=== PATIENT | female | born 1955 | race Hispanic/Latino ===

== ENCOUNTER 2017-09-03 07:39 | Emergency (ER) | payer OTHER ==
[2017-09-03 07:41] VITALS: BMI 19.1
[2017-09-03 08:07] LABS: BASO # 0.01 K/mm3 (0.0-2.0); BASO % 0.1 % (0.0-3.0); EOS % 0.1 % (1.5-5.0); GRAN # 10.48 (1.4-6.5); GRAN % 85.2 % (50.0-68.0); HEMOGLOBIN 13.9 g/dL (12.0-16.0); LYMPH # 1.3 (1.2-3.4); LYMPH % 10.4 % (22.0-35.0); MEAN CELL VOLUME 92.9 fl (80.0-105.0); MEAN CORPUSCULAR HEMOGLOBIN 31.8 pg (25.0-35.0); MEAN CORPUSCULAR HGB CONC 34.2 g/dl (31.0-37.0); MEAN PLATELET VOLUME 8.2 fl (7.0-11.0); MONO # 0.5 (0.1-0.6); MONO % 4.2 % (1.0-6.0); RBC 4.37 10^6/uL (3.5-6.1); RED CELL DISTRIBUTION WIDTH 13.2 % (11.5-14.5); WHITE BLOOD COUNT 12.3 10^3/ul (4.5-11.0)
[2017-09-03 08:23] LABS: ALB/GLOB RATIO 1.4 (1.1-1.8); ALT/SGPT 31 U/L (7-56); AST/SGOT 26 U/L (14-36); BLOOD UREA NITROGEN 19 mg/dL (7-21); CALCIUM 10.3 mg/dL (8.4-10.5); GFR AFRICAN-AMERICAN > 60; GFR NON-AFRICAN AMERICAN > 60
--- NOTE | 2017-09-03 08:38 | RAD ---
Date of service: 09/03/2017 HISTORY: chest pain COMPARISON: 02/25/2014. FINDINGS: LUNGS: The lungs are well inflated and clear. No pleural effusion or pneumothorax PLEURA: No significant pleural effusion identified, no pneumothorax apparent. CARDIOVASCULAR: Normal. OSSEOUS STRUCTURES: No significant abnormalities. VISUALIZED UPPER ABDOMEN: Normal. OTHER FINDINGS: None. IMPRESSION: No active pulmonary disease.
--- NOTE | 2017-09-03 08:39 | ED PDOC ---
Arrival/HPI - History of Present Illness Time/Duration: 1-3 hours Symptom Onset: Sudden Symptom Course: Resolved Quality: Stabbing Activities at Onset: Light Context: Work <Eunice Guerra - Last Filed: 09/03/17 10:32> <Ugo Dalal DO - Last Filed: 09/03/17 16:43> - General Chief Complaint: Chest Pain Time Seen by Provider: 09/03/17 07:49 - History of Present Illness Narrative History of Present Illness (Text): 09/03/17 08:39 This is a 62 year old female with PMH of PAD, COPD currently smoking, HT, dyslipidemia, and hypothyroidism presenting to the ER for chest pain this morning. Pain started at work while patient was seated and lasted for 5 minutes before subsiding spontaneously. Patient states pain was sharp in nature, non radiating, and 10/10. Patient denies nausea and vomiting. Patient did not take anything for the pain. Patient states a dull pain returned shortly afterwards. Patient states she had normal exercise stress test and echo done last year. Patient has hiatal hernia confirmed by endoscopy and current symptoms feel similar to hiatal hernia pain. She is an active smoker for 15 years and smokes 1 -2 packs/week. Patient denies SOB, fevers, headaches, and nausea. (Eunice Guerra) Past Medical History - Provider Review Nursing Documentation Reviewed: Yes - Tetanus Immunization Tetanus Immunization: Unknown - Cardiac Hx TN: Yes Hx Hypertension: Yes - Pulmonary Hx Chronic Obstructive Pulmonary Disease (COPD): Yes - Neurological Hx Neurological Disorder: No - HEENT Hx HEENT Disorder: No - Renal Hx Renal Disorder: No - Endocrine/Metabolic Hx Hypothyroidism: Yes - Hematological/Oncological Hx Blood Disorders: No - Integumentary Hx Dermatological Disorder: No - Musculoskeletal/Rheumatological Hx Musculoskeletal Disorders: No - Gastrointestinal Hx Gastroesophageal Reflux: Yes - Genitourinary/Gynecological Hx Genitourinary Disorders: No - Psychiatric Hx Anxiety: Yes Hx Substance Use: No - Surgical History Hx Orthopedic Surgery: Yes (carple tunnel) - Suicidal Assessment Feels Threatened In Home Enviroment: No <Eunice Guerra - Last Filed: 09/03/17 10:32> Family/Social History - Physician Review Nursing Documentation Reviewed: Yes Family/Social History: Unknown Family HX Smoking Status: Never Smoked Hx Alcohol Use: No Hx Substance Use: No Hx Substance Use Treatment: No <Eunice Guerra - Last Filed: 09/03/17 10:32> Allergies/Home Meds <Eunice Guerra - Last Filed: 09/03/17 10:32> <Ugo Dalal DO - Last Filed: 09/03/17 16:43> Allergies/Adverse Reactions: Allergies erythromycin base Allergy (Verified 09/03/17 07:42) RASH moxifloxacin [From Avelox] Allergy (Verified 09/03/17 07:42) RASH Home Medications: Home Meds Medication Instructions Recorded Confirmed Levothyroxine Sodium 50 mg PO DAILY 02/25/14 09/03/17 Losartan/Hydrochlorothiazide 1 tab PO DAILY 02/25/14 09/03/17 [Losartan Potassium-Hydrochlorothiazide 12.5 M] Cilostazol [Pletal] 100 mg PO BID 09/03/17 09/03/17 Ezetimibe/Simvastatin [Vytorin 1 each PO DAILY 09/03/17 09/03/17 10-40 mg Tablet] Fluticasone/Salmeterol 250/50 0 dsk IH DAILY 09/03/17 09/03/17 [Advair Diskus] Montelukast [Singulair] 10 mg PO DAILY 09/03/17 09/03/17 Oxybutynin Chloride [Oxybutynin 10 mg PO DAILY 09/03/17 09/03/17 Chloride ER] Roflumilast [Daliresp] 500 mcg PO DAILY 09/03/17 09/03/17 Tiotropium [Spiriva] 0 mcg IH DAILY 09/03/17 09/03/17 rOPINIRole [Requip] 0.25 mg PO BID 09/03/17 09/03/17 Review of Systems - Physician Review All systems were reviewed & negative as marked: Yes - Review of Systems Constitutional: Normal. absent: Fevers Eyes: Normal ENT: Normal Respiratory: Normal. absent: SOB Cardiovascular: Chest Pain. absent: Palpitations, Syncope Gastrointestinal: Normal. absent: Abdominal Pain Genitourinary Female: Normal Musculoskeletal: Normal Skin: Normal Neurological: Normal Endocrine: Normal. absent: Diaphoresis Psychiatric: Normal <Eunice Guerra - Last Filed: 09/03/17 10:32> Physical Exam Vital Signs Reviewed: Yes Temperature: Afebrile Blood Pressure: Normal Pulse: Regular Respiratory Rate: Normal Appearance: Positive for: Well-Appearing, Non-Toxic, Comfortable Pain Distress: None Mental Status: Positive for: Alert and Oriented X 3 - Systems Exam Head: Present: Atraumatic, Normocephalic Pupils: Present: PERRL Extroacular Muscles: Present: EOMI Conjunctiva: Present: Normal Mouth: Present: Moist Mucous Membranes Neck: Present: Normal Range of Motion Respiratory/Chest: Present: Clear to Auscultation, Good Air Exchange. No: Respiratory Distress, Accessory Muscle Use Cardiovascular: Present: Regular Rate and Rhythm, Normal S1, S2. No: Murmurs Abdomen: No: Tenderness, Distention, Peritoneal Signs Back: Present: Normal Inspection Upper Extremity: Present: Normal Inspection. No: Cyanosis, Edema Lower Extremity: Present: Normal Inspection. No: Edema Neurological: Present: Speech Normal, Motor Func Grossly Intact, Normal Sensory Function Skin: Present: Warm, Dry, Normal Color. No: Rashes Psychiatric: Present: Alert, Oriented x 3, Normal Insight, Normal Concentration <Eunice Guerra - Last Filed: 09/03/17 10:32> Vital Signs Temp Pulse Pulse Resp BP Pulse Ox 09/03/17 09:46 70 19 97 09/03/17 09:19 98.2 F 53 L 18 106/74 98 09/03/17 07:51 69 09/03/17 07:46 98.1 F 68 20 98 09/03/17 07:40 98.1 F 96 H 20 115/81 97 Medical Decision Making <Eunice Guerra - Last Filed: 09/03/17 10:32> <Ugo Dalal DO - Last Filed: 09/03/17 16:43> ED Course and Treatment: 09/03/17 08:29 This is a 62 year old female with PMH of PAD, COPD currently smoking, HT, dyslipidemia, and hypothyroidism presenting to the ER for chest pain this morning. Differential: Hiatal hernia vs angina Plan: -Blood work, troponin, -EKG, -Maalox Progress: Patient is resting comfortably, vitals stable. EKG: rate is 62, normal sinus rhythm. No ST changes. NV of 154ms and QRS of 82ms. 09/03/17 09:[address] Saez who said patient ok to be discharged, patient to follow up with PMD. (Eunice Guerra) A 62 year old female with chest pain. In agreement with resident note, which includes further HPI details. Patient was seen and evaluated with resident, came up with plan and treatment together. (Ugo Dalal DO) - Lab Interpretations Lab Results: 09/03/17 08:00 09/03/17 07:50 Lab Results 09/03/17 08:30: Urine Color Yellow, Urine Appearance Turbid, Urine pH 7.5, Ur Specific [place] 1.010, Urine Protein Negative, Urine Glucose (UA) Negative, Urine Ketones Negative, Urine Blood Negative, Urine Nitrate Negative, Urine Bilirubin Negative, Urine Urobilinogen 0.2, Ur Leukocyte Esterase Negative 09/03/17 08:00: WBC 12.3 H D, RBC 4.37, Hgb 13.9, Hct 40.6, MCV 92.9, MCH 31.8, MCHC 34.2, RDW 13.2, Plt Count 344, MPV 8.2, Gran % 85.2 H, Lymph % (Auto) 10.4 L, [place] % (Auto) 4.2, Eos % (Auto) 0.1 L, Baso % (Auto) 0.1, Gran # 10.48 H, Lymph # (Auto) 1.3, [place] # (Auto) 0.5, Eos # (Auto) 0.0, Baso # (Auto) 0.01 09/03/17 07:50: Sodium 137, Potassium 4.0, Chloride 102, Carbon Dioxide 27, Anion Gap 12, BUN 19, Creatinine 0.7, Est GFR ( Amer) > 60, Est GFR (Non- Af Amer) > 60, Random Glucose 107, Calcium 10.3, Magnesium 2.3 H, Total Bilirubin 0.6, AST 26, ALT 31, Alkaline Phosphatase 63, Lactate Dehydrogenase 391, Total Creatine Kinase 51, Troponin I < 0.01, Total Protein 7.0, Albumin 4.0 , Globulin 2.9, Albumin/Globulin Ratio 1.4 - RAD Interpretation Radiology Orders: 09/03/17 07:51 CHEST PORTABLE [RAD] Stat - Medication Orders Current Medication Orders: Discontinued Medications Al Hydrox/Mg Hydrox/Simethicone (Maalox Plus 30 Ml) 30 ml PO STAT STA Stop: 09/03/17 08:41 Last Admin: 09/03/17 08:50 Dose: 30 ml - PA / BRANCH LEAD / Resident Statement / has reviewed & agrees with the documentation as recorded. / has examined the patient and agrees with the treatment plan. <Eunice Guerra - Last Filed: 09/03/17 10:32> - Scribe Statement The provider has reviewed the documentation as recorded by the Scribe <Ugo Dalal DO - Last Filed: 09/03/17 16:43> - Scribe Statement Kyara Villalobos Provider Scribe Attestation: All medical record entries made by the Scribe were at my direction and personally dictated by me. I have reviewed the chart and agree that the record accurately reflects my personal performance of the history, physical exam, medical decision making, and the department course for this patient. I have also personally directed, reviewed, and agree with the discharge instructions and disposition. (Ugo Dalal DO) Disposition/Present on Arrival - Present on Arrival Any Indicators Present on Arrival: No History of DVT/PE: No History of Uncontrolled Diabetes: No Urinary Catheter: No History of Decub. Ulcer: No History Surgical Site Infection Following: None - Disposition Have Diagnosis and Disposition been Completed?: Yes Disposition Time: 10:15 <Eunice Guerra - Last Filed: 09/03/17 10:32> - Disposition Disposition Time: 08:50 <Mulugeta LUNSFORDUgo - Last Filed: 09/03/17 16:43> - Disposition Diagnosis: Chest pain Disposition: HOME/ ROUTINE Condition: GOOD Discharge Instructions (ExitCare): Chest Pain That Is Not Caused by the Heart ( DC), Chest Pain (ED) Additional Instructions: PATRICK CHO, thank you for letting us take care of you today. Your provider was Ugo Dalal DO and you were treated for CHEST PAIN. The emergency medical care you received today was directed at your acute symptoms. If you were prescribed any medication, please fill it and take as directed. It may take several days for your symptoms to resolve. Return to the Emergency Department if your symptoms worsen, do not improve, or if you have any other problems. Please contact your doctor or call one of the physicians/clinics you have been referred to that are listed on the Patient Visit Information form that is included in your discharge packet. Bring any paperwork you were given at discharge with you along with any medications you are taking to your follow up visit. Our treatment cannot replace ongoing medical care by a primary care provider outside of the emergency department. Thank you for allowing the [facility] team to be part of your care today. Follow up with Dr. Gray in 1-2 days for re-evaluation and further management. Referrals: Kaya Gray MD [Primary Care Provider] - Follow up with primary Forms: [employer] (Slovak)
[2017-09-03] MEDS ORDERED: Alum-Mag Hydrox-Simethicone Susp (30 mL) PO STA (08:40)
[2017-09-03 08:50] LABS: TROPONIN I < 0.01 ng/mL
[2017-09-03 09:10] LABS: PH,URINE 7.5 (4.7-8.0); URINE BILIRUBIN NEGATIVE (NEGATIVE); URINE BLOOD NEGATIVE (NEGATIVE); URINE GLUCOSE (UA) NEGATIVE (NEGATIVE); URINE LEUKOCYTE ESTERASE NEGATIVE Leu/uL (NEGATIVE); URINE PROTEIN NEGATIVE mg/dL (<30 mg/dL); URINE UROBILINOGEN 0.2 E.U./dL (<1 E.U./dL)
[2017-09-03 09:20] VITALS: BP 106/74; TEMP 98.2
[2017-09-03 09:47] VITALS: PULSE 70; RESP 19; O2SAT 97
[2017-09-03 09:51] LABS: URINE APPEARANCE TURBID (CLEAR); URINE COLOR YELLOW (YELLOW)
--- NOTE | 2017-09-03 16:38 | CARD ---
APPROVED REPORT Date of service: 09/03/2017 EKG Measurement Heart [id number] <Conclusion> Normal sinus rhythm Septal infarct, age undetermined Abnormal ECG
== END 2017-09-03 09:47 | disposition home or self-care (01) ==
LOC: ED 07:39
DX: R07.9 Chest pain, unspecified (principal); E78.5 Hyperlipidemia, unspecified; E03.9 Hypothyroidism, unspecified; I10 Essential (primary) hypertension; F17.210 Nicotine dependence, cigarettes, uncomplicated; J44.9 Chronic obstructive pulmonary disease, unspecified